=== PATIENT | female | born 1995 | race Caucasian/White ===

== ENCOUNTER 2019-02-03 12:21 | Day surgery (SDC) | payer OTHER, SELFPAY ==
[2019-02-03] VITALS (9 sets, daily range): BP systolic 115–127; BP diastolic 68–93; PULSE 68–101; RESP 16–18; TEMP 36.3–36.8; O2SAT 98–100; BMI 34.9
--- NOTE | 2019-02-03 12:44 | PCM.HP.BLA ---
History and Physical Date of Admission: 02/03/19 HISTORY AND PHYSICAL ? Crystal Vigil 1995 ? REFERRING PHYSICIAN: ??Radha Ingram-* ? CHIEF COMPLAINT: ??abnormal gallbladder ? HPI: Crystal is a 23 year old female with a complaint of right upper quadrant pain. ?The patient has had symptoms of right upper quadrant pain for 1?month. ?The symptoms have increased, over the past?1?day. ?The pain does??radiate to the back and shoulder. ?Food does??aggravate her?symptoms. ?Alleviating factors include: none. ? The patient was seen by?urgent care??1?week?ago. ?Crystal underwent an ultrasound. ?These tests demonstrated cholelithiasis. ? She returned today with severe pain?starting at 3 AM after eating tacos for dinner last night. ? The patient is referred for?evaluation and treatment. ? The patient is being seen by me today at the request of DrSage?MIKKI VILLEGAS MD?for my opinion and advice regarding acute biliary colic.? ? ? SIGNIFICANT MEDICAL PROBLEMS:? PAST?MEDICAL?HISTORY PAST MEDICAL HISTORY Diagnosis Date ? Nephropathy of left kidney due to vesicoureteral reflux ? ? surgery age 7yrs ? Non morbid obesity 01/31/2018 ? ? OPERATIONS:? PAST?SURGICAL?HISTORY PAST SURGICAL HISTORY Procedure Laterality Date ? CT RENAL ABLATION PEDS ? 2002 ? REVISE MEDIAN N/CARPAL TUNNEL SURG Bilateral 02/04/2018 ? Bilateral carpal tunnel release ? TOOTH EXTRACTION ? CURRENT MEDICATIONS:? CURRENT?MEDICATIONS Current Outpatient Medications Medication Sig Dispense Refill ? omeprazole (PRILOSEC) 20 mg capsule Take 1 capsule by mouth daily before breakfast. 30 capsule 2 ? buPROPion (WELLBUTRIN) 75 mg tablet Take 1 tablet by mouth once daily. 90 tablet 3 ? sertraline (ZOLOFT) 50 mg tablet Take 1 tablet by mouth once daily. 90 tablet 3 ? meloxicam (MOBIC) 7.5 mg tablet Take 1 tablet by mouth once daily. for pain. Take with food. (Patient not taking: Reported on 12/28/2018 ) 20 tablet 2 ? methylPREDNISolone (MEDROL DOSE-PACK) 4 mg Dose-Pack As Instructed per package (Patient not taking: Reported on 12/28/2018 ) 1 Package 0 ? cetirizine (ZYRTEC) 10 mg tablet Take 10 mg by mouth as needed. ? ? ? levonorgestrel (KYLEENA) 17.5 mcg/24 hr (5 years) IUD Inserted in office 1 Each 0 ? No current facility-administered medications for this visit.? ? ALLERGIES:?Amoxicillin; Sulfa (Sulfonamide Antibiotics) ? PERSONAL HISTORY:? SOCIAL?HISTORY Social History ??Socioeconomic History ?Marital status: Single ?Spouse name: Not on file ?Number of children: 0 ?Years of education: Not on file ?Highest education level: Not on file ??Social Needs ?Financial resource strain: Not on file ?Food insecurity - worry: Not on file ?Food insecurity - inability: Not on file ?Transportation needs - medical: Not on file ?Transportation needs - non-medical: Not on file ??Occupational History ?Occupation: pcna ?Employer: [employer] ??Tobacco Use ?Smoking status: Former Smoker ?Types: Cigarettes ?Smokeless tobacco: Never Used ?Tobacco comment: occasionally smokes on weekends ??Substance and Sexual Activity ?Alcohol use: Yes ?Comment: Socially ?Drug use: No ?Sexual activity: Yes ?Partners: Male ? control/protection: IUD ??Other Topics ?Concerns: ?Not on file ??Social History Narrative ?Not on file ? FAMILY HISTORY:? FAMILY?HISTORY FAMILY HISTORY Problem Relation Age of Onset ? Heart Maternal Grandmother ? ? Diabetes Maternal Grandmother ? ? Heart Maternal Uncle ? ? Diabetes Maternal Uncle ? ? None Mother ?Unknown Hx ? other (Other) Father ?benign- brain tumor ? No Known Problems Sister ? ? No Known Problems Brother ? ? Cancer Maternal Grandfather ?stomach ? Breast Cancer Paternal Grandmother ? ? REVIEW OF SYMPTOMS: ??The review of systems data was entered by the nurse and reviewed by me ? There are no exam notes on file for this visit. ? ? PHYSICAL EXAMINATION: ? General: ?The patient is 23 year old female, well nourished, well hydrated in no acute distress. ?The patient is oriented to time, place, and person. ? VITALS:??There were no vitals taken for this visit.??There is no height or weight on file to calculate BMI.? ? HEENT: ?Normal cephalic, ataumatic, pupils are equally round, sclera are anicteric, mucous membranes are moist, oropharynx is clear. ?Neck has no masses, asymmetry or lymphadenopathy. ?Thyroid is unremarkable. ? Respiratory: ?Clear to auscultation and percussion. ?Normal respiratory excursion and pattern. ? Cardiac: ?Examination is regular rate and rhythm. ? Abdominal exam: ?Normoactive bowel sounds, Soft, tender in the right upper quadrant negative Churchill's sign,??with no palpable masses. ?No hepatosplenomegaly. ?No palpable hernias. ? Rectal exam:?exam deferred ? Extremities: ?no clubbing, cyanosis or edema. ?No adenopathy. ? Other: ? LABORATORY VALUES: As Noted ? RADIOLOGIC STUDIES: ?As Noted Above ? Assessment ? IMPRESSION:?RUQ Pain, Cholelithiasis ? PLAN: ??My plan is to perform a laparoscopic cholecystectomy with intraoperative choleangiogram. ??The planned surgical procedure was discussed extensively with the patient. ?The risks, benefits, anticipated outcomes and possible complications were mentioned. ?My staff has also explained the procedure in understandable terms and the patient was given the option to take printed material concerning the planned procedure. ?The patient had the opportunity to ask questions concerning the planned procedure. ?The patient freely consents to the planned procedure. ? She is still having persistent pain we will plan for urgent/emergent surgery today. ?She understands the increased risks related to urgent surgery if there is significant inflammation. ? Planned Procedure:?LAPAROSCOPIC CHOLECYSTECTOMY WITH INTRAOPERATIVE CHOLEANGIOGRAM - [id number] ? Planned antibiotic:?clindamycin 900mg IVPB insulation board coater operator to OR ? SCDs needed -?Yes ? Motel Food Service Supervisor Needed -?Yes ? Diagnoses:?(K80.50) Biliary colic ?(primary encounter diagnosis) ? ? My findings have been communicated to Dr.??MIKKI VILLEGAS MD?via shared medical record. ?This note will be forwarded to Dr. MIKKI VILLEGAS MD. ? Boogie Keene MD
--- NOTE | 2019-02-03 12:50 | EKG12_ITS ---
Test Reason : PREOP Blood Pressure : / mmHG Vent. Rate : 060 BPM Atrial Rate : 060 BPM P-R Int : 182 ms QRS Dur : 092 ms QT Int : 404 ms P-R-T Axes : 018 020 007 degrees QTc Int : 404 ms Normal sinus rhythm Normal ECG Confirmed by LAI GATICA, MARÍA ELENA ([id number]), assistant film editor SHERRY SANTIAGO ([id number]) on 02/08/2019 12:54:03 PM Referred By: Boogie Keene Confirmed By:MARÍA ELENA HOYT MD
[2019-02-03 13:03] LABS: Internal QC Validated? YES +Cl - CLEAR BKGD; Pregnancy, Urine Negative Negative
--- NOTE | 2019-02-03 14:30 | RAD_ITS ---
CLINICAL HISTORY: Female, 23 years old. Pain PROCEDURE: CHOLANGIOGRAM - intraoperative FLUOROSCOPY TIME (if supplied): (0:44) minutes/seconds Placement of the catheter and the procedure were performed by: Operating surgeon Fluoroscopy was provided by x-ray technologist, who was present in the room time of the procedure. TECHNIQUE: (Intraoperative cholangiogram was performed in usual fashion. Original cine video images were submitted prior to glucagon administration and additional sequences were obtained following IV glucagon administration) FINDINGS: Initial images demonstrate dilatation of the common bile duct and common hepatic duct with reflux into the pancreatic duct. There is no emptying into the small bowel however there are no appreciable filling defects seen to suggest intraductal calculi with findings most likely secondary to spasm. Following injection of glucagon, there is normal emptying into the duodenum RAD/Cholangiogram/ O R,Initial IMPRESSION: Dilatation of the biliary tree and reflux of contrast into the pancreatic duct without emptying into the small bowel during the initial injection however there is filling of the small bowel following glucagon administration suggesting spasm rather than intraductal stone For more complete information recommend correlation with operative note Electronically Signed: Nba Gonsalves MD at 18:51 EDT , Service support ,
--- NOTE | 2019-02-03 16:49 | OP.PCM_ITS ---
Report of Operation Date of Procedure: 02/03/19 Pre-Operative Diagnosis: acute cholecystitis Post-Operative Diagnosis: acute cholecystitis Surgery/Procedure Performed:: laparoscopic cholecystectomy with intraoperative cholangiogram Description of Surgical Findings:: as above prepared foods supervisor: Delfina Ashby Type of Anesthesia:: General Anesthesiologist: Adrian Munoz - ASA2 Specimen's removed: gallbladder Estimated Blood Loss (mL): 10 Fluids Replaced: 600 Description of Procedure: The patient was brought to the operating suite. Sign in was performed verifying patient, site, position, SCIP antibiotic prophylaxis- 100 mg clindamycin due to a penicillin allergy and DVT prophylaxis with SCDs. Following induction of general anesthetic. The patient?s abdomen was prepped and draped in the usual fashion. Timeout was performed verifying patient, site, position. Local anesthetic was injected below the umbilicus. Incision made and dissection carried down to the umbilical root fascia. 2 stay sutures were placed. Incision made in the fascia, the peritoneum was thick so a 5 mm Visiport was used to access the peritoneal cavity. an upper midline 5 mm port was placed under direct visualization. A 10 mm Conteh trocar was inserted and secured with the stay sutures. Pneumoperitoneum to 15 mmHg was insufflated. 3 right upper quadrant 5 ports were placed in the standard position. visual inspection revealed few days the gallbladder edema consistent with early acute cholecystitis. The gallbladder was grasped retracted upward and outward. Dissection was carried out in Calot?s triangle. When a critical view of the neck of the gallbladder funneling of the cystic duct with no signs of aberrant ductal structures were seen, a clip was placed on the neck of the gallbladder cystic duct junction. A partial ductotomy was made. A Cholangiocath was inserted into the duct and secured with a clip. Intraoperative cholangiogram was performed demonstrating filling of the cystic duct filling the common bile duct and filling into the pancreatic duct without an obvious ductal obstruction but poor emptying. 1 mg of greater than was given and after 2 minutes there was easy emptying into the duodenum without signs of obstruction area and the clip and catheter were removed. 2 clips placed on the cystic duct and the cystic duct divided. Dissection was continued until the cystic artery was clearly dissected and identified. The artery was then doubly clipped proximally singly clipped distally and divided. The gallbladder was then dissected free from the gallbladder fossa using electrocautery. The gallbladder was placed in an Endobag and removed through the umbilical port site. An 0 PDS llszap-dt-owzsh suture was placed around the umbilical port site defect. Pneumoperitoneum was reestablished. The gallbladder fossa was checked for hemo stasis. With good hemostasis, the area was irrigated and aspirated to clear. 5mm ports were removed under direct visualization with no signs of bleeding. Pneumoperitoneum was released. The Conteh trocar was removed. The umbilical fascial suture was secured area did skin was closed with interrupted 4-0 Monocryl subcuticular sutures. Steri-Strips and bandages were applied. The patient was brought to recovery room in stable condition. - Admit VTE Documentation VTE Present on Admission: No VTE Mechan Device Prophylaxis: SCD's VTE Pharm Prophylaxis ordered?: No
--- NOTE | 2019-02-03 16:54 | DCINST_ITS ---
Discharge Diet: Light diet - advance as tolerated Discharge Activity: May Not Drive - for 2-3 days or while taking narcotic pain medications., - - Do not drive, work heavy equipment or sign legal documents for 24 hours. May shower in (days): 1 - with the bandage in place. Additional Activity Instructions:: Pain medication may cause nausea. You should typically eat light foods as you take your pain medications. Pain medication may also cause constipation. If this is a problem for you, please discuss with your doctor. Call your doctor if your incision/area has: Continuous Slow Oozing, Sudden Increased Bleeding, Increased Pain/ Swelling, Increased Redness, Foul Smelling Discharge Call your doctor if you observe: Fever of 101 or Higher Suture Line Care: Avoid Pulling/Pushing, Avoid Pinching/Bending Additional Dressing/Incision Instructions:: Leave operative bandaids on for 2 days. When you remove dressing, leave Steri-Strips on until your follow-up appointment, or until the Steri-Strips fall off on their own. Allergies/Adverse Reactions: Allergies amoxicillin Allergy (Verified 03/19/17 21:57) Rash sulfamethoxazole [From Bactrim] Allergy (Verified 03/19/17 21:57) Rash trimethoprim [From Bactrim] Allergy (Verified 03/19/17 21:57) Rash Medications to take at Discharge Omeprazole 20 mg PO DAILY 02/03/19 Oxycodone HCl/Acetaminophen [Percocet 5/325] 1 tab PO Q4H PRN PRN 5 Days #16 tab 02/03/19 Sertraline HCl 50 mg PO DAILY 02/03/19 buPROPion tablets [Wellbutrin tablets] 75 mg PO DAILY 02/03/19 The following prescriptions were given: Oxycodone HCl/Acetaminophen [Percocet 5/325] 1 tab PO Q4H PRN PRN 5 Days #16 tab PRN Reason: Pain Primary Care Physician: Arelis Mclaughlin MD [Primary Care Provider] - Test Results: Test results from this visit will be discussed in further detail at your follow- up appointment, if applicable. Please Follow Up With: Boogie Keene MD - Please call [phone] to schedule an appointment. When: 7 days after your surgery
[2019-02-03] MEDS: oxyCODONE 5 MG Tablet PO (18:43)
--- NOTE | 2019-02-06 | GALL_PTH ---
PATIENT: TAN HUSSEIN LOC: [facility] [place] U#:[id number] AGE/SX: 23/F ROOM: RE02/03/[address]: Dr. Boogie Keene MD : 1995 BED: DIS: 02/03/2019 SPEC #: [id number] RECD: 02/06/19 10:17 STATUS: HUNTER RESaúl #: [id number] ANDREW: 02/06/19 00:[address]: Boogie Keene DEPT: SURGICAL PATHOLOGY RECD BY: Madhu Gillis ENTERED: 02/06/19 10:18 SP TYPE: NOÉ BAZZI DR: Dr. Arelis Mclaughlin MD Tissues: Gallbladder, NOS Procedures: Surgery Specimen Level III HEADER OPERATION: Laparoscopic cholecystectomy with IOC PRE-OP DIAGNOSIS: RUQ pain, cholelithiasis TISSUE SUBMITTED: Gallbladder MICROSCOPIC DIAGNOSIS Gallbladder, cholecystectomy: Chronic cholecystitis and cholelithiasis. AM:mumtaz 02/07/19 MICROSCOPIC DESCRIPTION Slides are reviewed. GROSS DESCRIPTION Received is one container labeled with the patient's name and designated gallbladder. The specimen consists of a gallbladder measuring 6.5 cm in length and 3 cm in diameter. The external surface is pink-lorenz, smooth and glistening for the most part. Focally it is granular, hemorrhagic and contains cautery artifact. The gallbladder contains green-yellow mucoid bile and multiple yellow-orange mulberry stones measuring in aggregate 3 x 3 x 1 cm and 0.1 to 0.5 cm in greatest dimension. The mucosa is bile-stained and without any mass lesions. The gallbladder wall measures up to 0.2 cm in thickness. Ethylene Plant Operator sections from the gallbladder and the cystic duct are submitted in one cassette. / SJ:mumtaz 02/06/19 TC:3 [facility]: [id number]
== END 2019-02-03 19:26 | disposition home or self-care (01) ==
LOC: SDC 12:28 → AC 12:30
PROVIDERS: Anesthesiology; Family Provider Internal Medicine; PCP Internal Medicine; Referring Provider Surgery; Visit Provider Surgery
PROC: (CPT 47610; principal; 2019-02-03 15:10)
DX: K80.10 Calculus of gallbladder with chronic cholecystitis without obstruction (principal); F32.9 Major depressive disorder, single episode, unspecified; Z87.448 Personal history of other diseases of urinary system; Z79.899 Other long term (current) drug therapy; Z87.891 Personal history of nicotine dependence
CPT/HCPCS: 47563; 74300; 76000; 81025; 88304; 93005; J7120; J1610; J2405

== ENCOUNTER → 2019-05-30 13:05 | Outpatient (CLI) | payer OTHER, SELFPAY ==
[2019-04-27 07:06] VITALS: BMI 33.0
== END ==
PROVIDERS: Family Provider Internal Medicine; PCP Internal Medicine; Referring Provider Nurse Practitioner Primary Care; Visit Provider Nurse Practitioner Primary Care
DX: R00.2 Palpitations (principal)
CPT/HCPCS: 93225; 93226

== ENCOUNTER 2020-10-28 08:07 | Outpatient (RCR) | payer OTHER, SELFPAY ==
[2019-04-27 07:06] VITALS: BMI 33.0
== END 2020-11-20 23:59 ==
LOC: EMPH 08:07
PROVIDERS: Referring Provider Family Medicine Geriatric Medicine; Visit Provider Family Medicine Geriatric Medicine
DX: Z03.818 Encounter for observation for suspected exposure to other biological agents ruled out (principal)

== ENCOUNTER 2021-11-11 07:07 | Day surgery (SDC) | payer OTHER, SELFPAY ==
[2021-11-11] VITALS (8 sets, daily range): BP systolic 112–138; BP diastolic 45–98; PULSE 65–83; RESP 14–18; TEMP 36.1–36.8; O2SAT 97–100; BMI 36.6
[2021-11-11] MEDS: Lactated Ringers 1,000 ML 15 ML IV (07:20)
[2021-11-11 07:30] LABS: Internal QC Validated? YES +Cl - CLEAR BKGD
[2021-11-11 07:31] LABS: Pregnancy, Urine Negative Negative
--- NOTE | 2021-11-11 08:23 | PCM.OPRPT ---
Problems Associated Problem List Diagnoses (1) Chronic tonsillitis: Report of Operation Date of Procedure: 11/11/21 Pre-Operative Diagnosis: chronic tonsillitis Post-Operative Diagnosis: chronic tonsillitis Surgery/Procedure Performed:: tonsillectomy Surgeon: Wander An Type of Anesthesia: General Description of Procedure: On the day of the procedure, after appropriate informed consent was obtained, the patient was brought to the operating room and placed in a supine position on the operating room table. The patient was placed under general endotracheal anesthesia by the anesthesiologist. The endotracheal tube was secured. The eyes were taped. The table was rotated 90 degrees toward the surgeon. A key-tanya mouthgag was inserted into the oral cavity with care not to damage the lips, teeth or gums. It was suspended from the shirley stand. A red rubber catheter was inserted transnasally to elevate the soft palate. The right tonsil was grasped with a curved allis, retracted medially, dissected and removed using bovie electrocautery. The left tonsil was grasped with a curved allis, retracted medially, dissected and removed using bovie electrocautery. The area was irrigated with saline, a valsalva was held and hemostasis was observed. The table was rotated 90 degrees toward the anesthesiologist and the patient was extubated uneventfully.
--- NOTE | 2021-11-11 08:28 | PCM.DC ---
Discharge Instructions Diet Discharge Diet: No restrictions Activity Discharge Activity: Return to Normal Activity Dressing / Incision Call your doctor if your incision/area has: Sudden Increased Bleeding Follow Up Care Please Follow Up With: Wander An MD When: 3 weeks Test Results: Test results from this visit will be discussed in further detail at your follow-up appointment, if applicable. Discharge Plan Admission Attending Provider: Wander An Primary Care Provider: Arelis Mclaughlin Discharge Orders/Prescriptions Prescriptions: No Action valacyclovir [Valtrex] 500 mg Tablet 500 mg PO DAILY RF: 0 Disposition Discharge Orders: Discharge Patient (Routine); Ordered 11/11/21 Ordered By: Dr. Wander An
--- NOTE | 2021-11-11 08:42 | TONS_PTH ---
PATIENT: TAN HUSSEIN LOC: [facility] – [place] U#:[id number] AGE/SX: 25 ROOM: RE11/11/[address]: Dr. Niels An MD : 1995 BED: DIS: 11/11/2021 SPEC #: [id number] RECD: 11/11/21 12:51 STATUS: HUNTER [place] #: [id number] ANDREW: 11/11/21 08:[address]: Niels An DEPT: SURGICAL PATHOLOGY RECD BY: Arielle Fuller ENTERED: 11/11/21 13:30 SP TYPE: TONSILS OTHR DR: Dr. Arelis Mclaughlin MD Tissues: Tonsil, NOS Procedures: Surgery Specimen Level III HEADER OPERATION: Tonsillectomy PRE-OP DIAGNOSIS: Chronic tonsillitis bilateral TISSUE SUBMITTED: Bilateral tonsils, right with string MICROSCOPIC DIAGNOSIS Right and left tonsils, bilateral tonsillectomies: Benign lymphoid follicular hyperplasia, consistent with chronic tonsillitis. Organisms consistent with actinomyces. AM:mumtaz 11/12/2021 MICROSCOPIC DESCRIPTION Slides are reviewed. GROSS DESCRIPTION Received is one container labeled with the patient's name and designated tonsils - tie on right are two tonsils that in aggregate weigh 8.7 gm. The right tonsil has a tie on it and measures 2.5 x 2 x 1.3 cm. The left tonsil measures 3 x 2 x 2 cm. Both tonsils are similar in appearance. The external surfaces are pink-lorenz, smooth, glistening and somewhat lobulated. Focally they are hemorrhagic, granular and bear cautery artifact. Serial cross sections through the tonsils reveal normal tonsillar architecture. Sections are submitted in two cassettes as follows: 1 - right tonsil, 2 - left tonsil. / LAMBERTO:mumtaz 11/11/2021 TC:5 CPT: 24437 x2
[2021-11-11] MEDS: Acetaminophen 325 MG Tablet 650 MG PO (11:43)
== END 2021-11-11 23:59 | disposition home or self-care (01) ==
LOC: SDC 07:08 → AC 07:09
PROVIDERS: Anesthesiology; PCP Internal Medicine; Referring Provider Otolaryngology; Visit Provider Otolaryngology
PROC: (CPT 42826; principal; 2021-11-11 08:25)
DX: J35.01 Chronic tonsillitis (principal); F41.9 Anxiety disorder, unspecified; F32.A Depression, unspecified; Z79.899 Other long term (current) drug therapy
CPT/HCPCS: 42826; 00170; 81025; 87426; 88304; C9803; J7120; J2405

== ENCOUNTER 2024-09-29 11:32 | Outpatient (CLI) | payer OTHER, SELFPAY ==
[2024-09-29] VITALS (12 sets, daily range): BP systolic 126–157; BP diastolic 73–99; PULSE 82–103; RESP 14; O2SAT 96–98; BMI 43.6
[2024-09-29 12:39] LABS: Hematocrit 36.7 % (37-47); Hemoglobin 12.5 g/dL (12.0-15.0); Mean Corp Hgb Conc 34.1 g/dL (32-36); Mean Corpuscular Hgb 30.1 pg (27.0-32.0); Mean Corpuscular Volume 88.4 fL (81-99); Mean Platelet Vol. 10.4 fl (6.2-12.0); Platelet Count 262 K/mm3 (150-450); RBC Distribution Width CV 13.6 % (11.6-14.6); RBC Distribution Width SD 43.9 fl (35.1-43.9); Red Blood Count 4.15 M/mm3 (4.2-5.4); White Blood Count 9.4 K/mm3 (4.4-11.0)
--- NOTE | 2024-09-29 12:56 | OB.TRI.NOTE ---
HPI - General HPI Narrative TAN HUSSEIN, is a 28 F who presents from office today for elevated blood pressures with headache. PFSH PFSH Medical History Depression Anxiety Alcohol use Former smoker Home Medications ?Medication ?Instructions ?Recorded ?Last Taken ?Type acyclovir 400 mg tablet 400 mg PO TID 09/29/24 09/29/24 History aspirin 81 mg capsule 81 mg PO DAILY 09/29/24 09/29/24 History [id number] fum 28 pkg PO 09/29/24 09/29/24 History mg-folic acid 800 mcg-dha 200 mg oral pack ( + DHA) Allergy/AdvReac Type Severity Reaction Status Date / Time amoxicillin Allergy Rash Verified 09/29/24 12:24 sulfamethoxazole (From Allergy Rash Verified 09/29/24 12:24 Bactrim) trimethoprim (From Bactrim) Allergy Rash Verified 09/29/24 12:24 Surgical History (Updated 11/04/21 @ 13:05 by Piper Conde) Hx of wisdom tooth extraction History of carpal tunnel surgery of right wrist History of carpal tunnel surgery of left wrist Hx laparoscopic cholecystectomy Social History Smoking Status: Former smoker ROS Eyes Eyes: Denies blurry vision Cardiovascular Cardiovascular: Reports none; Denies chest pain at rest, chest pain with activity or dizziness Respiratory/Chest Respiratory/Chest: Denies cough or dyspnea Gastrointestinal Gastrointestinal: Reports none and other; Denies diarrhea or vomiting Genitourinary Genitourinary: Denies dysuria Musculoskeletal Musculoskeletal: Reports none Integumentary Integumentary: Reports none; Denies rash Neurologic Neurologic: Denies dizziness or other visual disturbances Psychiatric Psychiatric: Reports none Physical Exam Const alert and no apparent distress General Appearance: cooperative Orientation / Consciousness: awake Exam Limitations: no limitations HEENT normocephalic Eyes General Eye: normal appearance of both eyes Neck full ROM Chest inspection of chest normal Resp normal respiratory effort and normal air movement Effort and Inspection: symmetric chest movement Auscultation: clear to auscultation bilaterally Cardio regular rate GI soft to palpation, non-tender and non-distended Inspection: and other Back/Spine normal ROM Extremity full ROM, normal capillary refill and no calf tenderness Skin no rashes or lesions noted Neuro oriented x3 and CN's II-XII intact bilaterally Psych mental status grossly normal NST FHR Rate Baby A Baseline: 140 Variability:: Moderate Accelerations:: 15 x 15 NST Reactive:: Yes Uterine Activity:: None Assessment & Plan (1) 36 weeks gestation of : (2) Gestational hypertension: (3) Elevated blood pressure affecting in third trimester, antepartum: (4) History of herpes genitalis: PLAN: Plan Blood pressures monitored and no severe ranges Pre- e labs normal P/C ratio- negative- no protein Headache resolved after Tylenol PO Discussed with patient and plan of care for delivery at 37 weeks gestation Appointment for early next week in office for BP check Preeclampsia precautions reviewed BP ranges reviewed and when to call office Continue Acyclovir PO daily D/C home Dr. Craig involved with assessment and plan of care
[2024-09-29 13:02] LABS: AST(SGOT) 16 U/L (15-37); Alanine Aminotransfer ALT/SGPT 15 U/L (13-56); Creatinine, Serum 0.68 mg/dL (0.55-1.02); EST Glomerular Filtration Rate 111 mL/min (>60); Est Glom Filt Rate - Afr Amer 135 mL/min (>60); Estimated Creatinine Clearance 161.82 ml/min; Protein, Urine (Random) < 6.0 mg/dL (<11.9); Uric Acid 5.1 mg/dL (2.6-6.0)
[2024-09-29] MEDS: Acetaminophen 500 MG Tablet 1000 MG PO (13:07)
== END 2024-09-29 17:12 | disposition home or self-care (01) ==
LOC: WPOUT 11:43 → WP 11:44
PROVIDERS: PCP Internal Medicine; Referring Provider Advanced Practice Midwife; Visit Provider Advanced Practice Midwife
DX: O13.3 Gestational [pregnancy-induced] hypertension without significant proteinuria, third trimester (principal); O99.891 Other specified diseases and conditions complicating pregnancy; R51.9 Headache, unspecified; Z88.0 Allergy status to penicillin; Z88.2 Allergy status to sulfonamides; Z88.1 Allergy status to other antibiotic agents; Z3A.36 36 weeks gestation of pregnancy; Z86.19 Personal history of other infectious and parasitic diseases; Z79.82 Long term (current) use of aspirin; Z87.891 Personal history of nicotine dependence
CPT/HCPCS: 36415; 59025; 59050; 82565; 82570; 84156; 84450; 84460; 84550; 85027; 99221; G0378

== ENCOUNTER 2024-10-07 16:11 | Inpatient (IN) | payer OTHER, SELFPAY ==
[2024-10-07 16:30] VITALS: BMI 42.7
[2024-10-07] MEDS: Lactated Ringers 1,000 ML 50 ML IV (17:15)
[2024-10-07 17:39] LABS: Absolute Lymphocyte Count 2.02 X10^3/uL (0.83-4.51); Absolute Neutrophil Count 5.4 X10^3/uL (2.0-7.7); Basophil# 0.02 X10^3/uL; Basophil% 0.2 % (0-1); Eosinophil# 0.04 X10^3/uL; Eosinophils% 0.5 % (0-5); Hematocrit 35.5 % (37-47); Lymphocyte # 2.02 X10^3/ul (0.83-4.51); Mean Corp Hgb Conc 33.8 g/dL (32-36); Mean Corpuscular Hgb 29.9 pg (27.0-32.0); Mean Corpuscular Volume 88.3 fL (81-99); Mean Platelet Vol. 10.8 fl (6.2-12.0); Monocyte# 0.52 X10^3/uL; Monocyte% 6.4 % (0-10); NRBC Flagged by Analyzer 0 % (0-5); Neutrophil # 5.43 X10^3/uL (2.7-7.7); Neutrophil % 67.4 % (47-70); Platelet Count 280 K/mm3 (150-450); RBC Distribution Width CV 13.9 % (11.6-14.6); RBC Distribution Width SD 43.8 fl (35.1-43.9); Red Blood Count 4.02 M/mm3 (4.2-5.4); White Blood Count 8.1 K/mm3 (4.4-11.0)
[2024-10-07 17:43] VITALS: BP 139/91; PULSE 90; RESP 16; TEMP 36.9
[2024-10-07] MEDS: miSOPROStol 25 MCG TABLET VAGINAL ×2 (17:56→23:03)
[2024-10-07 18:10] LABS: Syphilis Antibodies Non-reactive
[2024-10-07 19:20] VITALS: BP 161/99; PULSE 84; RESP 16; TEMP 36.3
[2024-10-07 19:21] VITALS: BP 160/87; PULSE 84; O2SAT 100
[2024-10-07 19:36] VITALS: BP 162/90; PULSE 81
[2024-10-07 19:51] VITALS: BP 151/72; PULSE 81
[2024-10-08] VITALS (34 sets, daily range): BP systolic 108–155; BP diastolic 58–90; PULSE 67–98; RESP 14–18; TEMP 36.1–37.6; O2SAT 97–100
[2024-10-08] MEDS: miSOPROStol 25 MCG TABLET VAGINAL (03:05)
[2024-10-08] MEDS: Acetaminophen 500 MG Tablet PO (07:25)
--- NOTE | 2024-10-08 07:51 | PCM.PN.OB ---
Subjective Subjective Flores bulb placed without difficulty. 1-2 cm/60/-2 Objective Data Objective Data Vital Signs: Vital Signs Temp Pulse Resp BP Pulse Ox 98.5 F 79 16 131/76 H 97 10/08/24 07:14 10/08/24 07:15 10/08/24 07:14 10/08/24 07:14 10/08/24 07:15 Weight: 120.202 kg Body Mass Index (BMI) 42.7 Intake & Output: Intake and Output for Last 24 Hours 10/06/24 10/07/24 10/08/24 23:59 23:59 23:59 Intake Total 0.83 / 0.83 Balance 0.83 / 0.83 Lab / Micro Data 10/07/24 17:15 Labs: Laboratory Results - last 24 hr 10/07/24 17:15: WBC 8.1, RBC 4.02 L, Hgb 12.0, Hct 35.5 L, MCV 88.3, MCH 29.9, MCHC 33.8, RDW Std Deviation 43.8, RDW Coeff of Henry 13.9, Plt Count 280, MPV 10.8, Immature Gran % (Auto) 0.500, Neut % (Auto) 67.4, Lymph % (Auto) 25.0, [place] % (Auto) 6.4, Eos % (Auto) 0.5, Baso % (Auto) 0.2, Absolute Neuts (auto) 5.4, Absolute Lymphs (auto) 2.02, Nucleated RBC % 0, Syphilis Total Ab Non-reactive, Blood Type O POSITIVE, Antibody Screen NEGATIVE NST FHR Rate Baby A Baseline: 145 Variability:: Moderate Accelerations:: 15 x 15 Decelerations:: None NST Reactive:: Yes FHR Category:: Category I Uterine Activity:: q3 Assessment & Plan (1) Gestational hypertension: QUALIFIERS: Trimester: third trimester Qualified Code(s): O13.3 - Gestational [-induced] hypertension without significant proteinuria, third trimester (2) 37 weeks gestation of : PLAN: Plan Pitocin when flores out GBS negative epidural
[2024-10-08] MEDS: Oxytocin 15 Units/NS 250ml 15 UNITS/250 ML IV.SOLN 2 UNITS IV (08:41)
[2024-10-08] MEDS: Lactated Ringers 1,000 ML 999 ML IV (17:36)
[2024-10-08] MEDS: fentaNYL-bupivacaine (epidural) 100 ML BAG EPIDURAL ×2 (18:29→23:14)
--- NOTE | 2024-10-08 19:52 | PCM.PN.OB ---
Subjective Subjective SROM for clear fluid. 5cm/80/-2. IUPC placed without difficulty. Cat 1 occasional Cat 2 due to variable Objective Data Objective Data Vital Signs: Vital Signs Temp Pulse Resp BP Pulse Ox 98.4 F 80 16 119/59 L 100 10/08/24 19:47 10/08/24 19:47 10/08/24 19:47 10/08/24 19:47 10/08/24 19:47 Weight: 120.202 kg Body Mass Index (BMI) 42.7 Intake & Output: Intake and Output for Last 24 Hours 10/06/24 10/07/24 10/08/24 23:59 23:59 23:59 Intake Total 0.83 / 0.83 2160.86 / 2160.86 Output Total 600 / 600 Balance 0.83 / 0.83 1560.86 / 1560.86 Lab / Micro Data 10/07/24 17:15 NST FHR Rate Baby A Baseline: 150 Variability:: Moderate Accelerations:: 15 x 15 Decelerations:: Variable NST Reactive:: Yes FHR Category:: Category I Uterine Activity:: q2
[2024-10-09] VITALS (26 sets, daily range): BP systolic 124–148; BP diastolic 68–95; PULSE 85–104; RESP 16–18; TEMP 36.2–37.3; O2SAT 97–98
[2024-10-09] MEDS: Lidocaine 1% (20 ml mdv) 20 ML Vial INFILT (00:08)
[2024-10-09] MEDS: Oxytocin 15 Units/NS 250ml 15 UNITS/250 ML IV.SOLN 83 UNITS IV (00:21)
--- NOTE | 2024-10-09 00:26 | OB.VAGDELI_ITS ---
Assessment & Plan (1) (spontaneous vaginal delivery): (2) Gestational hypertension: QUALIFIERS: Trimester: third trimester Qualified Code(s): O13.3 - Gestational [-induced] hypertension without significant proteinuria, third trimester Maternal Data Information Final HECTOR: 10/27/24 Gestational age: 37+2 Vaginal Delivery Maternal Presentation Maternal Presentation: Medically Indicated Induction Maternal Presentation: GHTN Type of Induction: Pitocin, Cárdenas Bulb, Amniotomy and Cytotec Vaginal Delivery Information Procedure Performed: Spontaneous Vaginal Delivery Surgeon/Practitioner: Mellisa Licea Date of Procedure: 10/09/24 Pre-Procedure Diagnosis: GHTN at term Post-Procedure Diagnosis: Type of anesthesia: Epidural and Local with 1% Lidocaine Estimated Blood Loss: 100 cc Time of Delivery: 12:01 Findings Description of procedure: IOL with Cytotec, Cárdenas bulb and Pitocin. SROM at 5 cm. Progressed to complete over the next 3 hours. Pushed for about 2 hours to delivery OA. Tight cord around the neck x1. Double clamped and cut on the perineum. The anterior and posterior shoulders then delivered easily followed by the body. The was placed on the maternal abdomen. Cord blood was collected. The placed delivered spontaneously. Lidocaine was injected into the perineal laceration as her epidural was not effective pain control. A 2nd degree laceration wasd repiared with 2-0 vicryl. All lap and need counts were correct. Presentation: Vertex Amniotic Membrane Rupture Type: Spontaneous Amniotic Fluid Description: Clear Placental Delivery Description: Spontaneous Placenta Disposition: [facility] Specimen collected: No Cord Vessel Description: 3 Vessels Cord Entanglement: Around neck x 1, tight Nuchal Cord Compression: With compression Infant A Gender: Female (1 minute): 7 (5 minute): 8 Delayed Cord Clamping: No Tube Wrapper certified control systems technician: No Post Vaginal Deli Medications given after delivery: IV Pitocin Episiotomy Description: None Laceration: Midline and 2nd degree Complication Complications: No
[2024-10-09] MEDS: Acetaminophen 500 MG Tablet 1000 MG PO (21:00)
[2024-10-10 03:40] VITALS: BP 117/99; PULSE 89; RESP 16; TEMP 36.7; O2SAT 98
--- NOTE | 2024-10-10 07:05 | PCM.PN.OB ---
Subjective Subjective Patient is doing well and offers no complaints. Desires discharge today. She is ambulating and voiding without difficulty. She denies lightheadedness, dizziness, chest pain, shortness of breath, leg pain. Lochia is normal. She is tolerating regular diet without nausea or vomiting. Pain is controlled. Objective Data Objective Data Vital Signs: Vital Signs Temp Pulse Resp BP Pulse Ox O2 Del Method 98.0 F 89 16 117/99 H 98 Room Air 10/10/24 03:40 10/10/24 03:40 10/10/24 03:40 10/10/24 03:40 10/10/24 03:40 10/10/24 03:40 Oxygen Delivery Method Room Air Weight: 265 lb Body Mass Index (BMI) 42.7 Intake & Output: Intake and Output for Last 24 Hours 10/08/24 10/09/24 10/10/24 23:59 23:59 23:59 Intake Total 2622.53 / 2622.53 376.64 / 376.64 Output Total 600 / 600 1000 / 1000 Balance 2.53 / 202.53 -623.36 / -623.36 Lab / Micro Data 10/07/24 17:15 Physical Exam Const alert and no apparent distress General Appearance: comfortable Resp normal respiratory effort GI soft to palpation, non-tender and non-distended GI Narrative: Fundus firm at U- 2 Extremity no calf tenderness Assessment & Plan (1) (spontaneous vaginal delivery): PLAN: Patient is day 1 from a vaginal delivery. She offers no complaints and desires discharge. Discharge instructions were reviewed. (2) Gestational hypertension: QUALIFIERS: Trimester: third trimester Qualified Code(s): O13.3 - Gestational [-induced] hypertension without significant proteinuria, third trimester
--- NOTE | 2024-10-10 07:08 | DCINST_ITS ---
Discharge Instructions Diet Discharge Diet: No restrictions DC O2, CPAP, BIPAP needs Home O2 Discharge instructions: No Dressing / Incision Discharge Activity: May Drive and May Shower May resume sexual activity in: 6 weeks Ice area for (Minutes): 15 Weight Bearing Status: Weight bearing as tolerated Lifting Restrictions: nothing heavier than baby Dressing / Incision Call your doctor if your incision/area has: Continuous Slow Oozing, Sudden Increased Bleeding, Increased Pain/ Swelling, Increased Redness, Foul Smelling Discharge and Swelling at the incision site Call your doctor if you observe: Fever of 101 or Higher, Coldness, Increased Pain, Numbness or Tingling, Inability to urinate, Inability to have a bowel movement, Using more than 1 pad per hour, Shortness of breath, Dizziness, Swelling in the ankles, Chest pain, Increased palpitations (irregular heartbeat), Calf discomfort and Uncontrolled pain Follow Up Care Please Follow Up With: Mellisa Licea MD When: 1 week early 6 week visit Test Results: Test results from this visit will be discussed in further detail at your follow- up appointment, if applicable. Discharge Plan Admission Admit Date/Time: 10/07/24 16:11 Primary Reason for Your Visit: delivery Attending Provider: Mellisa Licea Primary Care Provider: Arelis Mclaughlin Instructions Patient Instructions: After a Vaginal Discharge Orders/Prescriptions Prescriptions: Continued + DHA 28 mg iron-800 mcg-200 mg combo pack PO Discontinued aspirin 81 mg capsule 81 mg PO DAILY acyclovir 400 mg tablet 400 mg PO TID Referrals / Follow Up: Arelis Mclaughlin MD [Primary Care Provider] - Disposition Disposition (needs filled in before D/C Order can be placed): Home, Self Care
[2024-10-10 08:00] VITALS: BP 130/82; PULSE 84; RESP 16; TEMP 36.3
--- NOTE | 2024-10-10 10:51 | CASEMGMT ---
Social Work Assessment Labor and Delivery Unit Patient Address: [address] [place], [place] [address] Phone number: [phone] Date of Referral: 10/09/24 Time of Referral: 728 Referred By: Dr. Licea Date of Intervention: ??10/10/24 Time of Intervention:? 929 Reason for Referral:? mental health Sw completed chart review and acknowledges social work consult due to maternal mental health history. Sw presented to bedside and introduced self to mother of baby (MOB- Crystal) and father of baby (FOB- Alberto). Sw explained reason for sw involvement and completed psychosocial assessment. History obtained from: medical records, MOB and FOB. ?? Household composition: Currently residing in the family home is MOB and FOB. to be included in residence when ready for discharge. Parents deny any problems or concerns with housing at this time. Patient's parent/guardian status:? ?Parents report that they have known each other since high school, and have been in a relationship for four years. No concerns reported of domestic violence or intimate partner violence. This is first baby for both parents. Medical History: ?MARY is 28 year old female who is 1, para 0- now 1 following labor and delivery of . MARY received routine care during with [facility]. MARY presented to hospital for an induction of labor and delivered baby via vaginal delivery on 10/09/23 at 37 weeks gestation. Baby girl, named Anthony Shah, was born weighing 7lb 2oz with apgars of 7 and 8 at one and five minutes of life, respectfully. MARY is breast feeding and states that baby will be followed by Dr. Epps for pediatrics. Educational Status:? MARY graduated from high school and MICHAELClara obtained his Bachelor's degree. No problems with reading, learning or comprehension. Financial Status: Both parents are gainfully employed outside of the home. MARY works for [employer] Children Services and CORDELL works for [employer]. Infant Supplies: All necessary baby supplies obtained, including: car seat, safe sleep space, clothes, diapers and wipes. Childcare/Caregiver(s):? MARY states that she will be the primary caregiver to baby along with FOClara when he is not working. When both parents are at work paternal grandma will provide childcare for baby along with a public defender that parents have chosen. Transportation:?? Both parents have their drivers license and reliable means of transportation. No barriers. Programs/Agencies Involved: ?Parents are not connected to any community agencies that assist them financially as they are over income. ?? Children Services/Legal Issues:??No history of children services involvement. NO issues or concerns warranting children services referral at this time. ? Behavioral Health Issues: ??Mental Health History:??CORDELL denies mental health history. MARY states that she has been diagnosed with anxiety and depression. MOB reports that her mental health symptoms are managed and they are not something that she struggles with regularly. MOB states that she is not prescribed any medications to help her manage her symptoms. ? Substance Use History:?Parents deny substance use prior to and during . ? Family History:??Parents deny family history of substance use or significant mental health diagnoses. ??? Drug Screens: No drug screens observed in chart review. Family/Social Stressors:? Parents deny any problems, concerns or stressors at this time. Support Systems: MARY states that CORDELL is her biggest support, along with both sets of grandparents. Depression/Shaken Baby/Safe Sleeping: Rickey educated parents on signs and symptoms of baby blues and mood and anxiety disorders to be mindful of during this period. MARY is well versed in what the terms baby blues and depression and anxiety are. FOB reports that if MOB were to struggle with her mental health, he would be able to recognize that and would know how to help her. MARY reports that when she feels anxious or upset about something she talks through it with FOB. Rickey educated parents on shaken baby prevention and ABCs of safe sleep. Parents express understanding. ASSESSMENT:? MOB and baby admitted following labor and delivery. MOB with mental health history positive for anxiety and depression, she is not currently prescribed anything to help mange her symptoms and reports that she is feeling really good. MOB denies any feelings of sadness, anger, anxiousness, etc. Both parents involved and participated in completion of assessment. FOB observed holding baby lovingly and appropriately. Both parents with strong supports in place and have obtained all necessary baby items. PLAN:?? No other services requested or indicated. MOB and baby to be discharged when medically ready. Parents were provided literature regarding: signs and symptoms of baby blues and mood and anxiety disorders, Help Me Grow, shaken baby prevention, ABCs of safe sleep and a list of [facility] resources that are available for them should any needs present themselves. Ary Cleary, OIL AND GAS WELL TREATMENT OPERATOR, WALL INSULATION SPRAYER
--- NOTE | 2024-11-13 06:47 | HP.PCM.OB_ITS ---
HPI - General General Date of Admission: 10/07/24 Date of Service: 11/04/24 Chief Complaint: GHTN HPI Narrative TAN HUSSEIN, is a 28 F who presents IOL for gestational HTN. Maternal Data Information Final HECTOR: 10/27/24 Gestational age: 37+2 PFSH PFSH Medical History (spontaneous vaginal delivery) Gestational hypertension Depression Anxiety Alcohol use Former smoker Home Medications ?Medication ?Instructions ?Recorded ?Last Taken ?Type [id number] fum 28 pkg PO 09/29/24 0 10/07/24 History mg-folic acid 800 mcg-dha 200 mg oral pack ( + DHA) Allergy/AdvReac Type Severity Reaction Status Date / Time amoxicillin Allergy Rash Verified 10/07/24 16:28 sulfamethoxazole (From Allergy Rash Verified 10/07/24 16:28 Bactrim) trimethoprim (From Bactrim) Allergy Rash Verified 10/07/24 16:28 Surgical History Hx of wisdom tooth extraction History of carpal tunnel surgery of right wrist History of carpal tunnel surgery of left wrist Hx laparoscopic cholecystectomy Social History Smoking Status: Former smoker History 1 Elective abortions Hx Para 0 Spontaneous abortions Hx # Term Pregnancies Ectopic pregnancies Hx # Pregnancies Multiple births # of living children ROS Constitutional Constitutional: Denies fatigue, fever(s) or malaise Eyes Eyes: Denies change in vision ENT HEENT: Denies dizziness or headache(s) Cardiovascular Cardiovascular: Denies chest pain, dyspnea or lightheadedness Respiratory/Chest Respiratory/Chest: Denies cough or dyspnea Gastrointestinal Gastrointestinal: Denies change in bowel habits Genitourinary Genitourinary: Denies burning urination or genital lesions Integumentary Integumentary: Denies rash Neurologic Neurologic: Denies confusion, dizziness, headache(s), numbness or weakness Vital Signs Vital Signs Vital Signs: Weight Weight: 120.202 kg Body Mass Index (BMI) 42.7 Physical Exam Const alert and no apparent distress General Appearance: cooperative HEENT normocephalic Resp normal respiratory effort Cardio regular rate GI soft to palpation GI Narrative: gravid, nontender, appropriate for gestational age Extremity no calf tenderness General Extremity: edema Skin no wounds Rashes: No rashes noted Psych activity/motor behavior normal Labs Labs Labs: Blood Type O POSITIVE Antibody Screen NEGATIVE Hct 35.5 % (37-47) L Hgb 12.0 g/dL (12.0-15.0) Syphilis Total Ab Non-reactive Assessment & Plan (1) Elevated blood pressure affecting in third trimester, antepartum: (2) History of herpes genitalis: (3) 37 weeks gestation of : PLAN: Plan IOL for gestational HTN
== END 2024-10-10 10:45 | disposition home or self-care (01) | DRG 807 ==
PROVIDERS: Admitting Provider Obstetrics & Gynecology; PCP Internal Medicine; Visit Provider Obstetrics & Gynecology
DX: O13.4 Gestational [pregnancy-induced] hypertension without significant proteinuria, complicating childbirth (principal); Z37.0 Single live birth; O69.1XX0 Labor and delivery complicated by cord around neck, with compression, not applicable or unspecified; O70.1 Second degree perineal laceration during delivery; Z3A.37 37 weeks gestation of pregnancy; Z88.0 Allergy status to penicillin; Z86.19 Personal history of other infectious and parasitic diseases; Z87.891 Personal history of nicotine dependence
CPT/HCPCS: 59025; 59050; 85025; 86780; 86850; 86900; 86901